=== PATIENT | female | born 1945 | race Caucasian/White ===

== ENCOUNTER 2024-11-11 14:17 | Emergency (ER) | payer OTHER ==
[2024-11-11 16:02] LABS: Absolute Lymphocytes (CBC) 1.3 K/uL (0.7-4.9); Absolute Monocytes 0.5 K/uL (0.1-1.3); Absolute Neutrophil 4.8 K/uL (1.8-8.0); Basophils % 0.7 % (0-1.3); Eosinophils % 0.3 % (0-4.4); Hemoglobin 14.4 g/dL (12.0-15.0); Lymphocytes % 20.1 % (15.3-44.8); MCH 29.8 pg (27.0-35.0); MCHC 34.2 g/dL (32.0-36.0); MCV 87.1 fL (80-100); MPV 8.2 fL (7.6-11.3); Monocytes % 7.3 % (3.3-12.3); Neutrophils % 71.6 % (41.7-73.7); Nucleated Red Blood Cells % 0.1 % (0-0); Platelets 244 thou/uL (152-406); RBC Red Blood Cell Count 4.82 M/uL (3.86-4.86); Red Cell Distribution Width 13.4 % (12.1-15.2)
--- NOTE | 2024-11-11 16:16 | RAD REPORT ---
EXAM: CT brain without contrast HISTORY: HTN Urgency COMPARISON: None TECHNIQUE: Multiple contiguous axial images were obtained and a CT of the brain without contrast. Sag ittal and coronal reformats were performed. One or more of the following dose reduction techniques were used: Automated exposure control, adjust ment of the mA and/or kV according to patient size, and/or iterative reconstruction. FINDINGS: No evidence of hydrocephalus, intracranial hemorrhage, or extra-axial fluid collection. The brain is normal in morphology. No evidence of midline shift or areas of brain edema. The calvarium is intact. The visualized paranasal sinuses and mastoid air cells are essentially clear . IMPRESSION: No evidence of acute intracranial abnormality.
[2024-11-11 16:25] LABS: ALT/SGPT 25 U/L (13-56); AST/SGOT 13 U/L (15-37); Albumin 3.7 g/dL (3.4-5.0); Albumin/Globulin Ratio 1.2 (1.1-1.8); Alkaline Phosphatase 69 U/L (45-117); BUN Blood Urea Nitrogen 14 mg/dL (7-18); Bicarbonate 29 mEq/L (21-32); Bilirubin Total 0.3 mg/dL (0.2-1.0); Globulin 3.1 g/dL (2.3-3.5); Glomerular Filtration Rate 89 ml/min (=/>90); Glucose Level 99 mg/dL (74-106); Magnesium 2.2 mg/dL (1.6-2.4); Protein, Total 6.8 g/dL (6.4-8.2); Sodium Level 141 mEq/L (136-145); Troponin High Sensitivity 4.2 pg/mL (<58.9)
[2024-11-11 16:37] LABS: Bilirubin Direct < 0.2 mg/dL (0-0.2); Bilirubin Indirect, Calculated 0.1 mg/dL (0.2-0.8)
[2024-11-11 16:39] LABS: Protime INR 0.96
--- NOTE | 2024-11-11 16:45 | EDPHYS ---
Physician Documentation [facility] Name: Trudi Navarro Age: 79 yrs Sex: Female : 1945 Arrival Date: 11/11/2024 Time: 14:17 Bed 5 Private MD: ED Physician Ramon Trimble HPI: 11/11 15:23 This 79 yrs old Female presents to ER via Ambulatory with complaints of High Blood sp3 Pressure and headache. 15:23 79-year-old female with history of hyperlipidemia, cervical dystonia presents to the ED sp3 with chief complaint headache, sinus pressure and elevated blood pressure to 180 systolic at home via wrist blood pressure cuff. Patient denies having high blood pressure in the past and is not on any antihypertensive medications. She denies any head trauma, changes in vision, neurological deficits, fever, neck pain, chest pain, shortness of breath, back pain, abdominal pain nausea, vomiting, diarrhea, syncope, near syncope, rash, bleeding, known sick contacts, travel history, prolonged immobilization, or any other signs or symptoms on ROS at this time.. Historical: - Allergies: 14:52 No Known Allergies; iw - PMHx: 14:52 Hypercholesterolemia; cervical dystonia; iw - PSHx: 14:52 Lumpectomy of breast; iw - Immunization history:: Adult Immunizations up to date. - Infectious Disease History:: Denies. - Social history:: Smoking status: Patient denies any tobacco usage or history of. ROS: 15:23 Constitutional: Negative for fever, chills, and weight loss, Eyes: Negative for injury, sp3 pain, redness, and discharge, ENT: Negative for injury, pain, and discharge, Neck: Negative for injury, pain, and swelling, Cardiovascular: Negative for chest pain, palpitations, and edema, Respiratory: Negative for shortness of breath, cough, wheezing, and pleuritic chest pain, Abdomen/GI: Negative for abdominal pain, nausea, vomiting, diarrhea, and constipation, Back: Negative for injury and pain, MS/Extremity: Negative for injury and deformity, Skin: Negative for injury, rash, and discoloration, Psych: Negative for depression, anxiety, suicide ideation, homicidal ideation, and hallucinations, Allergy/Immunology: Negative for hives, rash, and allergies, Endocrine: Negative for neck swelling, polydipsia, polyuria, polyphagia, and marked weight changes, 15:23 All other systems are negative, Exam: 15:24 Constitutional: This is a well developed, well nourished patient who is awake, alert, sp3 and in no acute distress. Head/Face: Normocephalic, atraumatic. Eyes: Pupils equal round and reactive to light, extra-ocular motions intact. Lids and lashes normal. Conjunctiva and sclera are non-icteric and not injected. Cornea within normal limits. Periorbital areas with no swelling, redness, or edema. ENT: Nares patent. No nasal discharge, no septal abnormalities noted. External auditory canals are clear. Oropharynx with no redness, swelling, or masses, exudates, or evidence of obstruction, uvula midline. Mucous membranes moist. Neck: Trachea midline, no thyromegaly or masses palpated, and no cervical lymphadenopathy. Supple, full range of motion without nuchal rigidity, or vertebral point tenderness. No Meningismus. Chest/axilla: Normal chest wall appearance and motion. Nontender with no deformity. No lesions are appreciated. Cardiovascular: Regular rate and rhythm with a normal S1 and S2. No gallops, murmurs, or rubs. Normal PMI, no JVD. No pulse deficits. Respiratory: Lungs have equal breath sounds bilaterally, clear to auscultation and percussion. No rales, rhonchi or wheezes noted. No increased work of breathing, no retractions or nasal flaring. Abdomen/GI: Soft, non-tender, with normal bowel sounds. No distension or tympany. No guarding or rebound. No evidence of tenderness throughout. Back: No spinal tenderness. No costovertebral tenderness. Full range of motion. Skin: Warm, dry with normal turgor. Normal color with no rashes, no lesions, and no evidence of cellulitis. MS/ Extremity: Pulses equal, no cyanosis. Neurovascular intact. Full, normal range of motion. Neuro: Awake and alert, GCS 15, oriented to person, place, time, and situation. Cranial nerves II-XII grossly intact. Motor strength 5/5 in all extremities. Sensory grossly intact. Cerebellar exam normal. Normal gait. Psych: Awake, alert, with orientation to person, place and time. Behavior, mood, and affect are within normal limits. 16:17 ECG was reviewed by the Attending Physician. EKG demonstrates normal sinus rhythm at 66 sp3 bpm with normal intervals, normal QRS, normal axis, normal ST/T-segment's without evidence of acute ischemia. Vital Signs: 14:50 BP 168 / 81; Pulse 84; Resp 16; Temp 98.6; Pulse Ox 97% on R/A; Weight 63.5 kg; Height iw 5 ft. 2 in. ; 15:50 BP 154 / 68; Pulse 72; Resp 18; Pulse Ox 98% on R/A; ph 16:51 BP 164 / 71; Pulse 78; Resp 18; Temp 97.5; Pulse Ox 98% on R/A; ph 14:50 Body Mass Index 25.61 (63.50 kg, 157.48 cm) iw MDM: 14:54 Medical Screening Exam initiated sp3 15:24 Data reviewed: vital signs, nurses notes, lab test result(s), EKG, radiologic studies. sp3 ED course: 79-year-old female with PMH above now with a resolved hypertension and headache/sinus pressure. Differential diagnosis includes sinus infection, hypertension induced headache, idiopathic headache, viral illness, among others. Patient was taking decongestants prescribed by her nurse practitioner at Dr. Jeremy Trimble's office approximately 1 week ago but is no longer taking them. Will assess for endorgan damage. Workup will include CT scan of the head, general labs including troponin and creatinine, EKG and general supportive care. If workup negative we will safely discharge patient home. Current blood pressure 168/81. No pharmacological intervention is indicated at this time.. 16:43 ED course: Full workup negative including troponin and CT head. Will safely discharge sp3 patient home. There is no endorgan damage and patient can follow-up with her PCP.. 11/11 15:22 Order name: Basic Metabolic Panel; Complete Time: 16:43 sp3 11/11 15:22 Order name: CBC with Diff; Complete Time: 16:16 3 11/11 15:22 Order name: LFT's; Complete Time: 16:43 sp3 11/11 15:22 Order name: Magnesium; Complete Time: 16:43 sp3 11/11 15:22 Order name: PT-INR; Complete Time: 16:43 3 11/11 15:22 Order name: Troponin HS; Complete Time: 16:43 3 11/11 15:22 Order name: CT Head Brain wo Cont; Complete Time: 16:16 sp3 11/11 15:22 Order name: EKG; Complete Time: 15:22 sp3 11/11 15:22 Order name: Cardiac monitoring sp3 11/11 15:22 Order name: EKG - Nurse/Tech; Complete Time: 16:13 sp3 11/11 15:22 Order name: IV Saline Lock; Complete Time: 15:54 sp3 11/11 15:22 Order name: Labs collected and sent; Complete Time: 15:54 sp3 11/11 15:22 Order name: O2 Per Protocol sp3 11/11 15:22 Order name: O2 Sat Monitoring sp3 Administered Medications: No medications were administered Disposition Summary: 11/11/24 16:44 Discharge Ordered Notes: Location: Home sp3 Condition: Stable sp3 Diagnosis - Headache sp3 Followup: sp3 - With: Private Physician - When: Upon discharge from the Emergency Department - Reason: Continuance of care Discharge Instructions: - Discharge Summary Sheet sp3 - General Headache Without Cause sp3 Forms: - Medication Reconciliation Form sp3 - Antibiotic Education sp3 - Prescription Opioid Use sp3 - Patient Portal Instructions sp3 - Leadership Thank You Letter sp3 Prescriptions: - Tramadol 50 mg Oral Tablet - take 1 tablet ORAL route every 8 hours as needed; 12 tablet; Refills: 0, sp3 Product Selection Permitted Signatures: Dispatcher [employer] Nicole Pitts, ZACHERY RN Ramon Solis MD MD sp3 Corrections: (The following items were deleted from the chart) 15:22 15:22 BASIC METABOLIC PANEL+C.LAB.BRZ ordered. EDMS EDMS 15:22 15:22 CBC+H.LAB.BRZ ordered. EDMS EDMS 15:22 15:22 HEPATIC FUNCTION+C.LAB.BRZ ordered. EDMS EDMS 15:22 15:22 MAGNESIUM+C.LAB.BRZ ordered. EDMS EDMS 15:22 15:22 PROTIME (+INR)+COAG.LAB.BRZ ordered. EDMS EDMS 15:22 15:22 Troponin High Sensitivity+C.LAB.BRZ ordered. EDMS EDMS
--- NOTE | 2024-11-11 16:45 | ER ---
Nurse's Notes [facility] Name: Trudi Navarro Age: 79 yrs Sex: Female : 1945 Arrival Date: 11/11/2024 Time: 14:17 Bed 5 Private MD: Diagnosis: Headache Presentation: 11/11 14:50 Chief complaint:. iw 14:51 Chief complaint: Patient states: today I felt my heart beating and my head felt funny iw and my BP was over 200 systolic at home and I got worried, still has some pressure in her head, she has had a cough recently so she was unsure if the pressure was from that , does not take take BP meds. Coronavirus screen: At this time, the client does not indicate any symptoms associated with coronavirus-19. Ebola Screen: No symptoms or risks identified at this time. Initial Sepsis Screen: Does the patient meet any 2 criteria? No. Patient's initial sepsis screen is negative. Does the patient have a suspected source of infection? No. Patient's initial sepsis screen is negative. Risk Assessment: Do you want to hurt yourself or someone else? Patient reports no desire to harm self or others. Onset of symptoms was November 11, 2024. 14:51 Method Of Arrival: Ambulatory iw 14:51 Acuity: LISA 3 iw Historical: - Allergies: 14:52 No Known Allergies; iw - PMHx: 14:52 Hypercholesterolemia; cervical dystonia; iw - PSHx: 14:52 Lumpectomy of breast; iw - Immunization history:: Adult Immunizations up to date. - Infectious Disease History:: Denies. - Social history:: Smoking status: Patient denies any tobacco usage or history of. Screenin:38 [facility] ED Fall Risk Assessment (Adult) History of falling in the last 3 months, ph including since admission No falls in past 3 months (0 pts) Confusion or Disorientation No (0 pts) Intoxicated or Sedated Yes (3 pts) Impaired Gait No (0 pts) Mobility Assist Device Used No (0 pt) Altered Elimination No (0 pt) Score/Fall Risk Level 0 - 2 = Low Risk Oriented to surroundings, Maintained a safe environment, Hourly rounding (assess needs \T\ fall precautionary measures) done. Abuse screen: Denies threats or abuse. Denies injuries from another. Nutritional screening: No deficits noted. Tuberculosis screening: No symptoms or risk factors identified. Assessment: 16:38 General: Appears in no apparent distress. comfortable, Behavior is calm, cooperative. ph Pain: Denies pain. Neuro: Level of Consciousness is awake, alert, obeys commands, Oriented to person, place, time, situation. Cardiovascular: Capillary refill < 3 seconds in bilateral fingers Patient's skin is warm and dry. Respiratory: Airway is patent Respiratory effort is even, unlabored, Respiratory pattern is regular, symmetrical. Derm: Skin is pink, warm \T\ dry. Vital Signs: 14:50 BP 168 / 81; Pulse 84; Resp 16; Temp 98.6; Pulse Ox 97% on R/A; Weight 63.5 kg; Height iw 5 ft. 2 in. ; 15:50 BP 154 / 68; Pulse 72; Resp 18; Pulse Ox 98% on R/A; ph 16:51 BP 164 / 71; Pulse 78; Resp 18; Temp 97.5; Pulse Ox 98% on R/A; ph 14:50 Body Mass Index 25.61 (63.50 kg, 157.48 cm) iw ED Course: 14:20 Patient arrived in ED. mr 14:25 Ramon Trimble MD is Attending Physician. sp3 14:52 Triage completed. iw 14:54 Arm band placed on. iw 15:54 Initial lab(s) drawn, by me, sent to lab. Inserted saline lock: 20 gauge in right zm antecubital area, using aseptic technique. Blood collected. Flushed with 10 mL NS. 15:54 Basic Metabolic Panel Sent. zm 15:54 CBC with Diff Sent. zm 15:54 LFT's Sent. zm 15:54 Magnesium Sent. zm 15:54 PT-INR Sent. zm 15:54 Troponin HS Sent. zm 16:00 CT Head Brain wo Cont In Process Unspecified. EDMS 16:13 EKG done, by ED staff, reviewed by Ramon Trimble MD. em1 16:38 Graciela Zendejas, RN is Primary Nurse. ph 16:39 Patient has correct armband on for positive identification. Bed in low position. Call ph light in reach. Side rails up X 1. Pulse ox on. NIBP on. Door closed. Noise minimized. Warm blanket given. 17:06 No provider procedures requiring assistance completed. IV discontinued, intact, ph bleeding controlled, No redness/swelling at site. Pressure dressing applied. Administered Medications: No medications were administered Medication: 16:39 VIS not applicable for this client. ph Outcome: 16:44 Discharge ordered by MD. anand 17:06 Discharged to home ambulatory, with significant other, ph 17:06 Condition: good 17:06 Discharge instructions given to patient, Instructed on discharge instructions, follow up and referral plans. 17:11 Patient left the ED. ph Signatures: Dispatcher [employer] EDNY Geraldine Tamez, Reg Reg mr Nicole German, RN RN Charlie Villarreal em1 Graciela Zendejas RN RN ph Ramon Trimble MD MD sp3 Aretha Pinedo Corrections: (The following items were deleted from the chart) 14:54 14:50 BP 168 / 81; Pulse 84bpm; Resp 16bpm; Pulse Ox 97% RA; Temp 98.6F; iw napoleon
[2024-11-11 17:20] VITALS: O2SAT 98
[2024-11-11 17:22] VITALS: BP 164/71; TEMP 97.5
--- NOTE | 2024-11-13 11:32 | EKG ---
Test Date: 2024-11-11 Test Time: 16:10:25 Electrical Sign Wirer: PEPPER MEASUREMENT RESULTS: Intervals: Rate: 66 MO: 176 QRSD: 76 QT: 388 QTc: 406 [place]: P: 60 MO: 176 QRS: 41 T: 50 INTERPRETIVE STATEMENTS: Normal sinus rhythm Possible Left atrial enlargement Borderline ECG Compared to ECG 04/15/2012 08:24:51 Sinus bradycardia no longer present Electronically Signed On 11-13-24 11:29:16 CDT by Angel Yu
== END 2024-11-11 17:11 | disposition home or self-care (01) ==
LOC: ER 14:17
DX: R51.9 Headache, unspecified (principal); E78.00 Pure hypercholesterolemia, unspecified
CPT/HCPCS: 36415; 70450; 80048; 80076; 83735; 84484; 85025; 85610; 93005; 99284